=== PATIENT | male | born 1985 | race Caucasian/White ===

== ENCOUNTER 2020-06-06 03:18 | Observation (INO) | payer OTHER, SELFPAY ==
[2020-06-06 03:42] LABS: #Lymphocytes 1.2 thou/uL (1.20-3.40); #Monocytes 1.4 thou/uL (0.11-0.59); #Neutrophils 17.2 thou/uL (1.40-6.50); %Basophils 0.1 % (0.0-1.0); %Eosinophils 0.2 % (0.0-10.0); %Monocytes 6.9 % (0.0-10.0); %Neutrophils 86.8 % (42.0-75.0); Hemoglobin 15.5 g/dL (14.0-18.0); Mean Corpuscular HGB CONC 34.2 g/dL (32.0-36.0); Mean Corpuscular Hemoglobin 32.8 pg (27.0-31.0); Mean Corpuscular Volume 96.1 fL (78.0-98.0); Mean Platelet Volume 8.8 fL (7.4-10.4); Platelet Count 207 thou/uL (130-400); RBC Distribution Width 11.9 % (11.5-14.5); Red Blood Cell (RBC) Count 4.71 mill/uL (4.70-6.10); White Blood Cell (WBC) Count 19.8 thou/uL (4.8-10.8)
[2020-06-06] MEDS ORDERED: Adacel (T-DAP) 0.5 ML SYRINGE ONE (03:44)
[2020-06-06 04:00] LABS: ALT (SGPT) 27 U/L (8-55); AST (SGOT) 48 U/L (5-34); Albumin 4.3 g/dL (3.5-5.0); Alcohol 174 mg/dL (Less than 10); Alkaline Phosphatase 69 U/L (40-110); Anion Gap 20 mmol/L (10-20); BUN (Urea Nitrogen) 17 mg/dL (8.9-20.6); Bilirubin, Total 0.7 mg/dL (0.2-1.2); Calc. Creatinine Clearance 0 mL/min (70-130); Calcium 8.9 mg/dL (7.8-10.44); Carbon Dioxide 18 mmol/L (22-29); Chloride 105 mmol/L (98-107); Estimated GFR-MDRD 66; Globulin 3.3 g/dL (2.4-3.5); Glucose 115 mg/dL (70-105); Lipase 27 U/L (8-78); Potassium 4.3 mmol/L (3.5-5.1); Protein, Total 7.6 g/dL (6.0-8.3); Sodium 139 mmol/L (136-145)
[2020-06-06] MEDS ORDERED: Lidocaine 1% w/Epinephrine 1:100K 20 ML VIAL ONE (04:47)
[2020-06-06] MEDS ORDERED: Fentanyl 100 MCG/2 ML VIAL ONE ×6 (06:58→14:23)
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
--- NOTE | 2020-06-06 07:41 | RAD ---
EXAM: 3 views of the right hand COMPARISON: None HISTORY: Hand pain after fall FINDINGS: 3 views of the hand shows no evidence of acute fracture or dislocation. No degenerative eliana nges are seen. Mild dorsal soft tissue swelling is present. IMPRESSION: Unremarkable exam.
--- NOTE | 2020-06-06 07:42 | RAD ---
EXAM: 3 views of the right wrist HISTORY: Wrist pain after fall COMPARISON: None FINDINGS: 3 views of the right wrist shows no evidence of acute fracture or dislocation. No soft tiss ue swelling is seen. No degenerative changes are present. IMPRESSION: No evidence of acute osseous abnormality.
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
--- NOTE | 2020-06-06 07:46 | RAD ---
EXAM: 2 views of the right elbow HISTORY: Elbow pain after fall COMPARISON: None FINDINGS: No elbow effusion is seen. There is no evidence of acute fracture or dislocation. No signi ficant degenerative changes are seen. No soft tissue swelling is present. 2 radiopaque foreign bodies are seen along the medial aspect of the elbow joint. These likely represent needles. IMPRESSION: 1. No evidence of acute osseous abnormality. 2. 2 needles along the medial aspect of elbow.
--- NOTE | 2020-06-06 08:40 | RAD ---
XR Forearm Lt 2 View STANDARD History: Injury Comparison: None. Findings: Forearm is intact. No fracture or malalignment Impression: Intact forearm
--- NOTE | 2020-06-06 08:40 | RAD ---
XR Humerus Lt 2 View STANDARD History: Injury. Fall Comparison: None. Findings: Humerus is intact. No fracture or malalignment. Impression: Intact left humerus
--- NOTE | 2020-06-06 08:41 | RAD ---
XR Hand Lt 3 View STANDARD History: Injury Comparison: None. Findings: No acute displaced fracture or malalignment. Soft tissues are unremarkable Impression: No acute osseous abnormality.
--- NOTE | 2020-06-06 08:49 | RAD ---
EXAM: 3 views of the left shoulder HISTORY: Shoulder pain after fall COMPARISON: None FINDINGS: There is no evidence of acute fracture or dislocation. No degenerative changes are present. No soft tissue swelling is seen. The visualized thorax is unremarkable. IMPRESSION: No evidence of acute osseous abnormality.
[2020-06-06 09:08] LABS: Bacteria/HPF None Seen HPF (None Seen); Bilirubin Negative (Negative); Blood, Urine 2+ (Negative); Clarity Clear (Clear); Glucose, Urine (Dipstick) Normal (Negative); Ketone, Urine 20 mg/dL (Negative); Leukocyte Negative Leu/uL (Negative); Nitrite Negative (Negative); Protein, Urine (Dipstick) 50 mg/dL (Neg-Trace); Squamous Epithelial 0-3 HPF (0-3); Urobilinogen Normal mg/dL (Less than 2); pH, Urine 5.5 (5.0-9.0)
[2020-06-06 09:18] LABS: Specific Gravity, Urine 1.047 (1.002-1.036)
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
[2020-06-06 09:24] LABS: Amphetamine Not Detected (NotDetected); Barbiturates Screen Not Detected (NotDetected); Benzodiazepine Screen Not Detected (NotDetected); Cocaine Metabolite Screen Not Detected (NotDetected); Medtox Control Line Valid? VALID (VALID); Medtox Reader # READER 4; Methadone Not Detected (NotDetected); Methamphetamine Not Detected (NotDetected); Opiate Screen Not Detected (NotDetected); Oxycodone Screen Not Detected (NotDetected); Phencyclidine (PCP) Not Detected (NotDetected); THC/Cannabinoid Screen Not Detected (NotDetected); Tricyclic Screen Not Detected (NotDetected)
[2020-06-06] MEDS ORDERED: PROPOFOL 200 MG/20 ML VIAL ONE (09:45)
[2020-06-06] MEDS ORDERED: Lidocaine 1% PF 5 ML VIAL ONE (09:45)
[2020-06-06] MEDS ORDERED: Morphine 4 MG/ML VIAL ONE (11:52)
[2020-06-06] MEDS ORDERED: diphenhydrAMINE 50 MG/ML VIAL ONE (11:54)
[2020-06-06] MEDS ORDERED: Neomycin-Polymyxin 1 ML AMP ONE (12:16)
[2020-06-06 12:19] LABS: SARS-CoV-2 NAA Rapid Test Not Detected (NotDetected)
[2020-06-06] MEDS ORDERED: Meperidine HCl/PF 25 MG/ML VIAL ONE (14:07)
[2020-06-06] MEDS ORDERED: Bacitracin Zinc Ointment 30 gm TUBE ONE (14:10)
[2020-06-06] MEDS ORDERED: Dextrose 50% Abboject 50 ML SYRINGE SLOW IVP PRN (14:19)
[2020-06-06] MEDS ORDERED: Ondansetron PF 4 MG/2 ML Vial IVP PRN (14:19)
[2020-06-06] MEDS ORDERED: Promethazine HCl 25 MG/ML VIAL IM PRN (14:19)
[2020-06-06] MEDS ORDERED: Dextrose 5% in Water 1,000 ML IV PRN (14:19)
[2020-06-06] MEDS ORDERED: Morphine 2 MG/ML VIAL SLOW IVP PRN (14:19)
[2020-06-06] MEDS ORDERED: hydrALAZINE 20 MG/ML VIAL SLOW IVP PRN (14:19)
[2020-06-06] MEDS ORDERED: Iopamidol-370 76% 500 ML 1 ML ONE (14:37)
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
[2020-06-06] MEDS ORDERED: Cyclobenzaprine 10 MG TAB PO PRN (14:59)
[2020-06-06 15:41] LABS: #Lymphocytes 1.8 thou/uL (1.20-3.40); #Monocytes 1.3 thou/uL (0.11-0.59); #Neutrophils 10.4 thou/uL (1.40-6.50); %Basophils 0.4 % (0.0-1.0); %Eosinophils 0.1 % (0.0-10.0); %Lymphocytes 13.2 % (21.0-51.0); %Monocytes 9.5 % (0.0-10.0); %Neutrophils 76.8 % (42.0-75.0); Hemoglobin 12.8 g/dL (14.0-18.0); Mean Corpuscular HGB CONC 34.1 g/dL (32.0-36.0); Mean Corpuscular Hemoglobin 33.1 pg (27.0-31.0); Mean Platelet Volume 8.1 fL (7.4-10.4); Platelet Count 183 thou/uL (130-400); RBC Distribution Width 11.8 % (11.5-14.5); Red Blood Cell (RBC) Count 3.88 mill/uL (4.70-6.10); White Blood Cell (WBC) Count 13.6 thou/uL (4.8-10.8)
[2020-06-06] MEDS: Bacitracin 1 PK TOP SCH ×2 (16:00→21:15)
[2020-06-06] MEDS: Sodium Chloride 0.9% 1,000 ML IV SCH (16:00)
[2020-06-06 16:05] LABS: Anion Gap 12 mmol/L (10-20); BUN (Urea Nitrogen) 13 mg/dL (8.9-20.6); Calc. Creatinine Clearance 0 mL/min (70-130); Calcium 7.9 mg/dL (7.8-10.44); Carbon Dioxide 26 mmol/L (22-29); Chloride 102 mmol/L (98-107); Estimated GFR-MDRD 88; Glucose 115 mg/dL (70-105); Sodium 136 mmol/L (136-145)
[2020-06-06 16:46] VITALS: BMI 36.3
[2020-06-06] MEDS: Acetaminophen 500 MG TAB PO SCH (18:18)
[2020-06-06] MEDS: traMADol HCl 50 MG TAB PO SCH (18:18)
[2020-06-06] MEDS: Oxazepam 10 MG CAP PO SCH (18:19)
[2020-06-06] MEDS ORDERED: Folic Acid/Vit B Comp W-C PO SCH (21:00)
[2020-06-06] MEDS: Senokot S 8.6-50 MG TAB PO SCH (21:10)
[2020-06-06] MEDS: Ibuprofen 600 MG TAB PO PRN (21:10)
[2020-06-06] MEDS: traMADol HCl 50 MG TAB PO PRN (21:11)
[2020-06-06] MEDS: Gabapentin 300 MG CAP PO SCH (21:11)
--- NOTE | 2020-06-06 23:38 | OP ---
DATE OF PROCEDURE: 06/06/2020 PREOPERATIVE DIAGNOSES: 1. Right transverse palmar laceration. 2. Right radial neck fracture. POSTOPERATIVE DIAGNOSES: 1. Right transverse palmar laceration. 2. Right radial neck fracture. PROCEDURE PERFORMED: 1. Irrigation and debridement of a right hand laceration at level of carpal canal. 2. Complex wound closure, right palm (7 cm). 3. Closed treatment of a right radial neck fracture. ANESTHESIA: General. MEDICAL PSYCHOTHERAPIST: Catarino Mcclellan PA-C. TOURNIQUET TIME: Zero. SPECIMEN: None. DRAINS: None. OUTCOME: Satisfactory. INDICATIONS FOR PROCEDURE: The patient is a 34-year-old gentleman status post fall sustaining multiple lacerations including the right palm, face, as identified in the operating room scrotum. Orthopedic consultation was requested for the right hand laceration. He was found to have a laceration transversely at the level of the base of the palm crossing from the thenar eminence to the hypothenar eminence. This went through skin and subcutaneous tissue, but stopped shy of the transverse carpal ligament. There was dirt and debris within the wound and as such, Orthopedic consultation requested so that this could be irrigated and closed appropriately. Patient also found to have a nondisplaced right radial neck fracture, which will be treated closed. DESCRIPTION OF PROCEDURE: The patient was brought to the operating room and a time-out performed followed by induction of general anesthesia. Next, a sterile prep and drape was performed of the right upper extremity. Next, the hand was inspected. He was found to have a 7 cm transverse laceration extending from the hypothenar to the thenar eminence. This was inspected, found to have very jagged edges. However, it only went through the skin and subcutaneous tissue and stopped shy of the transverse carpal ligament. Debris was removed from this wound using a combination of pickups and sharp debridement of the subcutaneous tissue. This was followed by copious irrigation with a cystoscopy to irrigating through the wound. Once this was performed, the wound was then reapproximated loosely with nylon suture in a simple interrupted fashion. At the completion of this, it was dressed with Xeroform gauze, Webril, and then a long-arm fiberglass splint was applied to the arm due to his nondisplaced radial neck fracture. At the completion of this, the patient was transferred to recovery room in stable condition. There were no complications. He tolerated the procedure well. Job ID: [id number]
[2020-06-07] MEDS: Sodium Chloride 0.9% 1,000 ML IV SCH ×2 (00:46→08:35)
[2020-06-07] MEDS: traMADol HCl 50 MG TAB PO SCH ×3 (00:48→12:22)
[2020-06-07] MEDS: Oxazepam 10 MG CAP PO SCH ×2 (00:48→10:29)
[2020-06-07] MEDS: Acetaminophen 500 MG TAB PO SCH ×3 (00:49→12:21)
[2020-06-07 05:23] LABS: #Eosinphils 0.1 thou/uL (0.0-0.7); #Lymphocytes 2.5 thou/uL (1.20-3.40); #Monocytes 1.1 thou/uL (0.11-0.59); #Neutrophils 7.3 thou/uL (1.40-6.50); %Basophils 0.4 % (0.0-1.0); %Eosinophils 0.9 % (0.0-10.0); %Lymphocytes 22.4 % (21.0-51.0); %Monocytes 9.7 % (0.0-10.0); %Neutrophils 66.6 % (42.0-75.0); Hemoglobin 13.8 g/dL (14.0-18.0); Mean Corpuscular HGB CONC 34.5 g/dL (32.0-36.0); Mean Corpuscular Hemoglobin 33.7 pg (27.0-31.0); Mean Corpuscular Volume 97.7 fL (78.0-98.0); Mean Platelet Volume 8.5 fL (7.4-10.4); Platelet Count 160 thou/uL (130-400); RBC Distribution Width 11.6 % (11.5-14.5); Red Blood Cell (RBC) Count 4.08 mill/uL (4.70-6.10)
[2020-06-07 05:39] LABS: Phosphorus 2.1 mg/dL (2.3-4.7)
[2020-06-07 05:40] LABS: Anion Gap 13 mmol/L (10-20); BUN (Urea Nitrogen) 10 mg/dL (8.9-20.6); Calc. Creatinine Clearance 196 mL/min (70-130); Carbon Dioxide 24 mmol/L (22-29); Chloride 101 mmol/L (98-107); Estimated GFR-MDRD Greater than 90; Glucose 97 mg/dL (70-105); Magnesium 1.8 mg/dL (1.6-2.6); Potassium 3.8 mmol/L (3.5-5.1); Sodium 134 mmol/L (136-145)
[2020-06-07] MEDS ORDERED: Thiamine 100 MG TAB PO SCH (09:00)
[2020-06-07] MEDS ORDERED: Polyethylene Glycol 3350 17 GM Packet PO SCH (09:00)
[2020-06-07] MEDS ORDERED: Multivitamin W/ Minerals 1 TAB PO SCH (09:00)
[2020-06-07] MEDS: Ibuprofen 600 MG TAB PO PRN (10:28)
[2020-06-07] MEDS: Senokot S 8.6-50 MG TAB PO SCH (10:28)
[2020-06-07] MEDS: Gabapentin 300 MG CAP PO SCH (10:28)
[2020-06-07] MEDS: traMADol HCl 50 MG TAB PO PRN (10:29)
[2020-06-07] MEDS: Bacitracin 1 PK TOP SCH (10:30)
[2020-06-07 11:25] VITALS: BP 119/80; TEMP 98.3
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
== END 2020-06-07 13:29 | disposition home or self-care (01) ==
LOC: ERS 03:18 → SURG A 12:29 → SDC 12:30 → SURG A 15:55
PROVIDERS: ADMIT Orthopaedic Surgery; ATTEND Orthopaedic Surgery
PROC: 0JQJ0ZZ Repair Right Hand Subcutaneous Tissue and Fascia, Open Approach (ICD-10-PCS; principal; 2020-06-06)
PROC: 2W38X1Z Immobilization of Right Upper Extremity using Splint (ICD-10-PCS; 2020-06-06)
DX: S61.421A Laceration with foreign body of right hand, initial encounter (principal); S52.134A Nondisplaced fracture of neck of right radius, initial encounter for closed fracture; S01.01XA Laceration without foreign body of scalp, initial encounter; S01.111A Laceration without foreign body of right eyelid and periocular area, initial encounter; F10.120 Alcohol abuse with intoxication, uncomplicated; F41.9 Anxiety disorder, unspecified; F32.9 Major depressive disorder, single episode, unspecified; F17.210 Nicotine dependence, cigarettes, uncomplicated; Z88.5 Allergy status to narcotic agent; Z20.828 Contact with and (suspected) exposure to other viral communicable diseases; W15.XXXA Fall from cliff, initial encounter; Y93.01 Activity, walking, marching and hiking; Y90.6 Blood alcohol level of 120-199 mg/100 ml
CPT/HCPCS: 12035; 12052; 36415; 70450; 71260; 72125; 74177; 80048; 80053; 80306; 80307; 81003; 81015; 82550; 83690; 83735; 84100; 85025; 90471; 90715; 96361; 96365; 96366; 96375; 96376; G0378; G0390; J0690; J1200; J2175; J2270; J2704; J3010; Q9967; U0002